=== PATIENT | female | born 1960 | race Caucasian/White ===

== ENCOUNTER → 2018-09-04 | Day surgery (SDC) | payer OTHER, MEDICARE, MEDICAID ==
[~2018-09-04] VITALS: Ht 154.9 cm; Wt 59.5 kg
[~2018-09-04] MED LIST: ACETAMINOPHEN 1000 MG/ISO-OSM 100 ML IV ONE; AMPICILLIN SODIUM 1 GM/VIAL ONE; ASCO500 PO; CALC-898 PO; DOCU250C91 PO; FERR-89 PO; FOLI1 PO; LACO100 PO; LEVE500T53 PO; LEVO125 PO; OMEP20 PO; OXYMETAZOLINE HCL 0.05% 15 ML NASAL SPRAY NASAL ONE; PHEN-460 PO; PHEN100C23 PO; POLY238P2 PO; PROZ10 PO; RINGERS SOLUTION,LACTATED 1,000 ML IV ONE; SENN-176 PO; VITAD1000 PO; [UNRECOGNIZED DRUG - CODE] NASAL
[2018-09-04 07:43] LABS: BASOPHILS % (AUTO) 0.6 % (0.0-2.0); EOSINOPHILS % (AUTO) 2.2 % (1.0-6.0); HEMATOCRIT 39.3 % (36-46); HEMOGLOBIN 13.2 g/dL (12.0-16.0); LYMPHOCYTES # (AUTO) 1.4 K/uL (1.0-4.8); LYMPHOCYTES % (AUTO) 27.3 % (22.0-44.0); MEAN CORPUSCULAR HGB CONC 33.6 G/dL (31.0-37.0); MEAN CORPUSCULAR VOLUME 98 fL (80-100); MONOCYTES # (AUTO) 0.5 K/uL (0.1-1.0); MONOCYTES % (AUTO) 9.2 % (2.0-9.0); NEUTROPHILS % (AUTO) 60.7 % (40.0-70.0); PLATELET COUNT (AUTO) 204 K/uL (150-450); RED CELL DISTRIBUTION WIDTH 13.5 % (11.5-14.5)
[2018-09-04 07:52] LABS: ANION GAP 11 mmol/L (8-16); CALCIUM, TOTAL 9.7 mg/dL (8.8-10.5); CARBON DIOXIDE 27 mmol/L (22-29); CHLORIDE 103 mmol/L (98-107); CREATININE 0.63 mg/dL (0.60-1.30); GLOMERULAR FILTR. RATE CALC > 60 mL/min (>60); GLUCOSE,RANDOM 81 mg/dL (70-110); POTASSIUM 4.1 mmol/L (3.5-5.1); SODIUM SERUM 141 mmol/L (136-145); UREA NITROGEN, BLOOD 18 mg/dL (7-18)
[2018-09-04 07:53] LABS: INR 1.1 (0.9-1.1); PROTHROMBIN TIME 11.6 SEC (9.4-11.6)
[2018-09-04 07:58] LABS: ALANINE AMINOTRANSFERASE 18 U/L (12-78); ALBUMIN 3.4 g/dL (3.4-5.0); ALKALINE PHOSPHATASE 129 U/L (46-116); ASPARTATE AMINOTRANSFERASE 24 U/L (15-37); BILIRUBIN,TOTAL 0.3 mg/dL (0.1-1.0); TOTAL PROTEIN, SERUM 7.9 g/dL (6.4-8.2)
== END | disposition home or self-care (01) ==
LOC: SURGERY 05:18
PROVIDERS: ATTEND Dentist General Practice
DX: K05.6 Periodontal disease, unspecified (principal); Z53.8 Procedure and treatment not carried out for other reasons; E03.9 Hypothyroidism, unspecified; G40.909 Epilepsy, unspecified, not intractable, without status epilepticus; D64.9 Anemia, unspecified; M81.0 Age-related osteoporosis without current pathological fracture; K21.9 Gastro-esophageal reflux disease without esophagitis; Z86.718 Personal history of other venous thrombosis and embolism; Z79.01 Long term (current) use of anticoagulants
CPT/HCPCS: 36415; 71045; 80053; 80185; 85025; 85610; 85730; 93005; G0482; J0131; J0290; J7120

== ENCOUNTER 2018-09-27 05:22 | Day surgery (SDC) | payer OTHER, MEDICARE, MEDICAID ==
[~2018-09-27] VITALS: Ht 160 cm; Wt 60.5 kg
[~2018-09-27 05:22] MED LIST changes: -ACETAMINOPHEN 1000 MG/ISO-OSM 100 ML IV ONE; -AMPICILLIN SODIUM 1 GM/VIAL ONE; -OXYMETAZOLINE HCL 0.05% 15 ML NASAL SPRAY NASAL ONE; -RINGERS SOLUTION,LACTATED 1,000 ML IV ONE
[2018-09-27] MEDS ORDERED: RINGERS SOLUTION,LACTATED 1,000 ML IV ONE ×2 (05:38→06:30)
[2018-09-27] MEDS ORDERED: AMPICILLIN SODIUM 1 GM/VIAL ONE (07:15)
[2018-09-27] MEDS ORDERED: MIDAZOLAM HCL 2 MG/2 ML VIAL IVP ONE (12:00)
[2018-09-27] MEDS ORDERED: LIDOCAINE/PF 2% 5 ML VIAL INJ ONE (12:00)
[2018-09-27] MEDS ORDERED: FentaNYL CITRATE-PF 100 MCG/2 ML VIAL IVP ONE (12:00)
[2018-09-27] MEDS ORDERED: PROPOFOL 1% 20 ML VIAL IVP ONE (12:00)
[2018-09-27] MEDS ORDERED: PHENYLEPHRINE HCL 10 MG/ML VIAL IVP ONE (12:00)
[2018-09-27] MEDS ORDERED: ROCURONIUM BROMIDE 10 MG/ML 5 ML VIAL IVP ONE (12:00)
== END 2018-09-27 14:25 | disposition short-term general hospital (02) ==
LOC: SURGERY 05:22
PROVIDERS: ATTEND Dentist General Practice
DX: K05.30 Chronic periodontitis, unspecified (principal); K03.6 Deposits [accretions] on teeth; G40.909 Epilepsy, unspecified, not intractable, without status epilepticus; D64.9 Anemia, unspecified; E03.9 Hypothyroidism, unspecified; F41.9 Anxiety disorder, unspecified; K21.9 Gastro-esophageal reflux disease without esophagitis; G62.9 Polyneuropathy, unspecified; Z79.899 Other long term (current) drug therapy
CPT/HCPCS: 41899; J0290; J2250; J2370; J2704; J3010; J3490 ×2; J7120

== ENCOUNTER 2020-07-23 06:56 | Day surgery (SDC) | payer OTHER, MEDICARE, MEDICAID ==
[~2020-07-23 06:56] MED LIST changes: +CARB15DR61 AU; +CHOL100018 PO; +DABI150 PO; +DOCU-350 PO; -DOCU250C91 PO; +FOLI-130 PO; -FOLI1 PO; +MULT-1130 PO; +PSYL575P22 PO; +RINGERS SOLUTION,LACTATED 1,000 ML IV ONE; -SENN-176 PO; +SENN8.6T90 PO; +SLOMG PO; -VITAD1000 PO
[2020-07-23] MEDS ORDERED: LIDOCAINE 2% 30 ML JELLY TP ONE (06:57)
[2020-07-23] MEDS ORDERED: DEXAMETHASONE SOD PHOS 4 MG/ML VIAL IVP ONE (06:57)
[2020-07-23] MEDS ORDERED: PROPOFOL 1% 20 ML VIAL IVP ONE (06:57)
[2020-07-23] MEDS ORDERED: KETOROLAC TROMETHAMINE 60 MG/2 ML VIAL IM ONE (06:57)
[2020-07-23] MEDS ORDERED: ONDANSETRON HCL 4 MG/2 ML VIAL IVP ONE (06:57)
[2020-07-23] MEDS ORDERED: LIDOCAINE/PF 2% 5 ML VIAL IM ONE (06:57)
[2020-07-23] MEDS ORDERED: NEOSTIGMINE METHYLSULFATE 1 MG/ML 10 ML VIAL IVP ONE (06:57)
[2020-07-23] MEDS ORDERED: ROCURONIUM BROMIDE 10 MG/ML 5 ML VIAL IVP ONE (06:57)
[2020-07-23] MEDS ORDERED: PHENYLEPHRINE HCL 1% 15 ML NASAL SPRAY NASAL ONE (06:57)
[2020-07-23] MEDS ORDERED: GLYCOPYRROLATE 0.2 MG/ML VIAL IM ONE (06:57)
[2020-07-23] MEDS ORDERED: AMPICILLIN SODIUM 1 GM/VIAL ONE ×2 (07:02→07:07)
[2020-07-23 07:13] LABS: COVID AG,FIA SOURCE NASOPHARYNGEAL
[2020-07-23 07:55] LABS: BASOPHILS % (AUTO) 0.7 % (0.0-2.0); EOSINOPHILS % (AUTO) 1.3 % (1.0-6.0); HEMATOCRIT 34.3 % (36-46); HEMOGLOBIN 11.5 g/dL (12.0-16.0); LYMPHOCYTES # (AUTO) 1.6 K/uL (1.0-4.8); LYMPHOCYTES % (AUTO) 26.9 % (22.0-44.0); MEAN CORPUSCULAR HEMOGLOBIN 34.1 pg (26.0-34.0); MEAN CORPUSCULAR HGB CONC 33.5 G/dL (31.0-37.0); MEAN CORPUSCULAR VOLUME 102 fL (80-100); MONOCYTES # (AUTO) 0.9 K/uL (0.1-1.0); MONOCYTES % (AUTO) 16.2 % (2.0-9.0); NEUTROPHILS # (AUTO) 3.2 K/uL (1.8-7.7); NEUTROPHILS % (AUTO) 54.9 % (40.0-70.0); PLATELET COUNT (AUTO) 220 K/uL (150-450); RED BLOOD CELL COUNT(AUTO) 3.37 MIL/uL (4.00-5.20); RED CELL DISTRIBUTION WIDTH 13.7 % (11.5-14.5)
[2020-07-23 08:00] LABS: ANION GAP 8 mmol/L (8-16); CALCIUM, TOTAL 8.9 mg/dL (8.8-10.5); CARBON DIOXIDE 28 mmol/L (22-29); CHLORIDE 107 mmol/L (98-107); CREATININE 0.62 mg/dL (0.60-1.30); GLOMERULAR FILTR. RATE CALC > 60 mL/min (>60); GLUCOSE,RANDOM 89 mg/dL (70-110); POTASSIUM 4.2 mmol/L (3.5-5.1); SODIUM SERUM 143 mmol/L (136-145); UREA NITROGEN, BLOOD 19 mg/dL (7-18)
[2020-07-23 08:37] LABS: INR 1.2 (0.9-1.1); PROTHROMBIN TIME 12.3 SEC (9.4-11.6)
[2020-07-23] MEDS ORDERED: MEPERIDINE-PF 25 MG/ML VIAL IVP PRN (11:45)
[2020-07-23] MEDS ORDERED: HYDROmorphone 2 MG/ML VIAL IVP PRN (11:45)
[2020-07-23] MEDS ORDERED: FentaNYL CITRATE PF 100 MCG/2 ML VIAL IVP PRN (11:45)
[2020-07-23] MEDS ORDERED: OXYGEN THERAPY IH SCH (11:45)
[2020-07-23] MEDS ORDERED: RINGERS SOLUTION,LACTATED 1,000 ML IV ONE (12:02)
== END 2020-07-23 14:10 | disposition home health service, planned readmission (86) ==
LOC: SURGERY 06:56
PROVIDERS: ATTEND Dentist General Practice
DX: K05.30 Chronic periodontitis, unspecified (principal); K59.00 Constipation, unspecified; E03.9 Hypothyroidism, unspecified; K21.9 Gastro-esophageal reflux disease without esophagitis; G40.909 Epilepsy, unspecified, not intractable, without status epilepticus; M81.0 Age-related osteoporosis without current pathological fracture; F03.90 Unspecified dementia, unspecified severity, without behavioral disturbance, psychotic disturbance, mood disturbance, and anxiety; D64.9 Anemia, unspecified; F32.9 Major depressive disorder, single episode, unspecified; I82.502 Chronic embolism and thrombosis of unspecified deep veins of left lower extremity; Z79.899 Other long term (current) drug therapy; Z98.890 Other specified postprocedural states
CPT/HCPCS: 36415; 41899; 71045; 80048; 85025; 85610; 85730; 87426; 93005; A9575; C9803; J0290; J1100; J1885; J2405; J2704; J3490 ×3; J7120

== ENCOUNTER 2022-10-27 06:44 | Day surgery (SDC) | payer OTHER, MEDICARE, MEDICAID ==
[~2022-10-27] VITALS: Ht 160 cm; Wt 55.0 kg
[~2022-10-27 06:44] MED LIST changes: -DABI150 PO; +DABI150C2 PO; -FERR-89 PO; +FERR325T27 PO; +FLUO10CA24 PO; +LEVE500T20 PO; -LEVE500T53 PO; +POLY238P PO; -POLY238P2 PO; -PROZ10 PO
[2022-10-27] MEDS ORDERED: EPHEDrine SULFATE 50 MG/ML VIAL IM ONE (06:45)
[2022-10-27] MEDS ORDERED: GLYCOPYRROLATE 0.2 MG/ML VIAL IM ONE (06:45)
[2022-10-27] MEDS ORDERED: ROCURONIUM BROMIDE 10 MG/ML 5 ML VIAL IVP ONE (06:45)
[2022-10-27] MEDS ORDERED: SUGAMMADEX SODIUM 200 MG/2 ML VIAL IVP ONE ×2 (06:45)
[2022-10-27] MEDS ORDERED: LIDOCAINE/PF 2% 5 ML VIAL IM ONE (06:45)
[2022-10-27] MEDS ORDERED: PROPOFOL 1% 20 ML VIAL IVP ONE (06:45)
[2022-10-27] MEDS ORDERED: ONDANSETRON HCL 4 MG/2 ML VIAL IVP ONE (06:45)
[2022-10-27 07:55] LABS: ANION GAP 6 mmol/L (8-16); BASOPHILS % (AUTO) 0.4 % (0.0-2.0); CARBON DIOXIDE 27 mmol/L (22-29); CHLORIDE 105 mmol/L (98-107); CREATININE 0.51 mg/dL (0.60-1.30); EOSINOPHILS % (AUTO) 2.5 % (1.0-6.0); GLOMERULAR FILTR. RATE CALC > 60 mL/min (>60); GLUCOSE,RANDOM 89 mg/dL (70-110); HEMATOCRIT 37.6 % (36-46); HEMOGLOBIN 12.5 g/dL (12.0-16.0); LYMPHOCYTES # (AUTO) 1.9 K/uL (1.0-4.8); LYMPHOCYTES % (AUTO) 38.3 % (22.0-44.0); MEAN CORPUSCULAR HEMOGLOBIN 33.5 pg (26.0-34.0); MEAN CORPUSCULAR HGB CONC 33.3 G/dL (31.0-37.0); MEAN CORPUSCULAR VOLUME 101 fL (80-100); MONOCYTES # (AUTO) 0.6 K/uL (0.1-1.0); MONOCYTES % (AUTO) 12.6 % (2.0-9.0); NEUTROPHILS # (AUTO) 2.3 K/uL (1.8-7.7); NEUTROPHILS % (AUTO) 46.2 % (40.0-70.0); PLATELET COUNT (AUTO) 153 K/uL (150-450); POTASSIUM 4.4 mmol/L (3.5-5.1); RED BLOOD CELL COUNT(AUTO) 3.74 MIL/uL (4.00-5.20); SODIUM SERUM 138 mmol/L (136-145)
[2022-10-27 08:00] LABS: INR 1.2 (0.9-1.1)
[2022-10-27] MEDS ORDERED: AMPICILLIN SODIUM 2 GM/NS 100 ML IV ONE (08:18)
[2022-10-27] MEDS ORDERED: FLUO10CA24 PO (08:27)
[2022-10-27] MEDS ORDERED: DIAZ1KIT PR (08:27)
[2022-10-27] MEDS ORDERED: DABI150C2 PO ×2 (08:34→08:36)
[2022-10-27] MEDS ORDERED: RINGERS SOLUTION,LACTATED 1,000 ML IV ONE (09:00)
== END 2022-10-27 14:15 | disposition home or self-care (01) ==
LOC: SURGERY 06:44
PROVIDERS: ATTEND Dentist General Practice
DX: K05.30 Chronic periodontitis, unspecified (principal); K02.9 Dental caries, unspecified; K03.6 Deposits [accretions] on teeth; K59.00 Constipation, unspecified; E03.9 Hypothyroidism, unspecified; M81.0 Age-related osteoporosis without current pathological fracture; K21.9 Gastro-esophageal reflux disease without esophagitis; G40.909 Epilepsy, unspecified, not intractable, without status epilepticus; Z79.01 Long term (current) use of anticoagulants; Z79.899 Other long term (current) drug therapy; Z20.822 Contact with and (suspected) exposure to COVID-19; Z86.718 Personal history of other venous thrombosis and embolism
CPT/HCPCS: 41899; 71045; 80048; 85025; 85610; 85730; 36415; 93005; J0290; J2704; J3490 ×4; J2405; Q9967; J7120

== ENCOUNTER 2023-12-07 06:11 | Day surgery (SDC) | payer OTHER, MEDICARE, MEDICAID ==
[~2023-12-07] VITALS: Ht 160 cm; Wt 54.9 kg
[~2023-12-07 06:11] MED LIST changes: +DIAZ1KIT PR; -DOCU-350 PO; +DOCU-412 PO; +FLUO-342 PO; -LACO100 PO; +LACO100T14 PO; +LEVE-71 PO; -LEVE500T20 PO; -PHEN-460 PO; -PHEN100C23 PO; +RINGERS SOLUTION,LACTATED 0 ML IV ONE; -RINGERS SOLUTION,LACTATED 1,000 ML IV ONE
[2023-12-07] MEDS ORDERED: DEXAMETHASONE SOD PHOS 4 MG/ML VIAL ONE ×2 (07:30→07:45)
[2023-12-07] MEDS ORDERED: LIDOCAINE/PF 2% 5 ML SYRINGE IVP ONE (07:30)
[2023-12-07] MEDS ORDERED: PROPOFOL 1% 20 ML VIAL IVP ONE ×2 (07:30→07:45)
[2023-12-07] MEDS ORDERED: ONDANSETRON HCL 4 MG/2 ML VIAL ONE ×2 (07:30→07:45)
[2023-12-07] MEDS ORDERED: ROCURONIUM BROMIDE 10 MG/ML 5 ML VIAL ONE ×2 (07:30→07:45)
[2023-12-07] MEDS ORDERED: SUGAMMADEX SODIUM 200 MG/2 ML VIAL IVP ONE ×2 (07:30→07:45)
[2023-12-07 07:39] LABS: BASOPHILS % (AUTO) 0.6 % (0.0-2.0); EOSINOPHILS % (AUTO) 2.3 % (1.0-6.0); HEMATOCRIT 37.7 % (36-46); HEMOGLOBIN 12.5 g/dL (12.0-16.0); LYMPHOCYTES # (AUTO) 1.4 K/uL (1.0-4.8); LYMPHOCYTES % (AUTO) 36.4 % (22.0-44.0); MEAN CORPUSCULAR HEMOGLOBIN 33.8 pg (26.0-34.0); MEAN CORPUSCULAR HGB CONC 33.2 G/dL (31.0-37.0); MEAN CORPUSCULAR VOLUME 102 fL (80-100); MONOCYTES # (AUTO) 0.5 K/uL (0.1-1.0); MONOCYTES % (AUTO) 12.5 % (2.0-9.0); NEUTROPHILS # (AUTO) 1.8 K/uL (1.8-7.7); NEUTROPHILS % (AUTO) 48.2 % (40.0-70.0); PLATELET COUNT (AUTO) 186 K/uL (150-450); RED CELL DISTRIBUTION WIDTH 13.5 % (11.5-14.5); WHITE BLOOD COUNT (AUTO) 3.8 K/uL (4.5-11.0)
[2023-12-07 07:44] LABS: ANION GAP 6 mmol/L (8-16); CARBON DIOXIDE 32 mmol/L (22-29); CHLORIDE 103 mmol/L (98-107); CREATININE 0.62 mg/dL (0.60-1.30); GLOMERULAR FILTR. RATE CALC > 60 mL/min (>60); GLUCOSE,RANDOM 85 mg/dL (70-110); POTASSIUM 4.1 mmol/L (3.5-5.1); SODIUM SERUM 141 mmol/L (136-145); UREA NITROGEN, BLOOD 20 mg/dL (7-18)
[2023-12-07] MEDS ORDERED: LIDOCAINE/PF 2% 5 ML VIAL ONE (07:45)
[2023-12-07 07:50] LABS: ALANINE AMINOTRANSFERASE 25 U/L (12-78); ALBUMIN 2.8 g/dL (3.4-5.0); ALKALINE PHOSPHATASE 115 U/L (46-116); ASPARTATE AMINOTRANSFERASE 20 U/L (15-37); BILIRUBIN,TOTAL 0.3 mg/dL (0.1-1.0); TOTAL PROTEIN, SERUM 7.4 g/dL (6.4-8.2)
[2023-12-07] MEDS ORDERED: AMPICILLIN SODIUM 2 GM/NS 100 ML IV ONE (07:50)
[2023-12-07 07:52] LABS: INR 1.1 (0.9-1.1); PROTHROMBIN TIME 11.5 SEC (9.4-11.6)
[2023-12-07] MEDS ORDERED: RINGERS SOLUTION,LACTATED 1,000 ML IV ONE (07:53)
[2023-12-07 07:54] LABS: RBC MORPHOLOGY COMMENT ABNORMAL RBC MORPH
[2023-12-07] MEDS: RINGERS SOLUTION,LACTATED 1,000 ML IV ONE (08:56)
== END 2023-12-07 13:20 | disposition home or self-care (01) ==
LOC: SDS 06:11 → EDSTATUS 11:30 → SDS 13:20
PROVIDERS: ATTEND Dentist General Practice
DX: K02.9 Dental caries, unspecified (principal); K05.30 Chronic periodontitis, unspecified; E03.9 Hypothyroidism, unspecified; F32.A Depression, unspecified; D64.9 Anemia, unspecified; M81.0 Age-related osteoporosis without current pathological fracture; K21.9 Gastro-esophageal reflux disease without esophagitis; I51.9 Heart disease, unspecified; R07.9 Chest pain, unspecified
CPT/HCPCS: 41899; 71045; 80053; 85025; 85610; 85730; 36415; 93005; J0290; J2704; J1100; J3490 ×4; J2405; J7120